=== PATIENT | female | born 1955 | race Caucasian/White ===

== ENCOUNTER → 2020-05-12 | Outpatient (CLI) | payer MEDICARE, OTHER ==
[~2020-05-12] MED LIST: AMLODIPINE BESY10 MG PO; CITALOPRAM HBR40 MG PO; CLARITIN 10MG T10 MG PO; LOPRESSOR 25 MG25 MG PO; NORCO 5-325 TA1 EACH PO; OMEPRAZOLE20 M1 PO; VOLTAREN EC 7575 MG PO
== END ==
LOC: EMI 10:46
DX: M54.5 Low back pain (principal); M51.86 Other intervertebral disc disorders, lumbar region
CPT/HCPCS: 72148

== ENCOUNTER → 2020-07-04 | Outpatient (CLI) | payer MEDICARE, OTHER | LOC: KOH-I 08:15 | DX: M53.3 Sacrococcygeal disorders, not elsewhere classified (principal); S32.19XA Other fracture of sacrum, initial encounter for closed fracture; S32.10XA Unspecified fracture of sacrum, initial encounter for closed fracture; D25.9 Leiomyoma of uterus, unspecified | CPT/HCPCS: 72195 ==

== ENCOUNTER → 2021-05-07 | Outpatient (CLI) | payer MEDICARE, OTHER | LOC: MRI 12:56 → KOH-I 13:00 → MRI 13:00 | DX: M25.512 Pain in left shoulder (principal); Z86.018 Personal history of other benign neoplasm; M19.012 Primary osteoarthritis, left shoulder | CPT/HCPCS: 36415; 73223; 82565; A9577 ==